=== PATIENT | male | born 1945 | race Caucasian/White ===

== ENCOUNTER 2024-12-05 08:38 | Day surgery (SDC) | payer MEDICARE, MEDICAID ==
[~2024-12-05] VITALS: Ht 188 cm; Wt 89.5 kg
[2024-12-05] MEDS ORDERED: albumin 25% 100mL bottle x 1 IV PRN (09:10)
[2024-12-05] MEDS ORDERED: normal saline 1000ml 1,000 ML IV PRN (09:20)
[2024-12-05] MEDS ORDERED: LOSA100T58 PO (09:35)
[2024-12-05] MEDS ORDERED: OMEP20CA16 PO (09:35)
[2024-12-05] MEDS ORDERED: APIX2.5T PO (09:35)
[2024-12-05] MEDS ORDERED: BUSP15TA3 PO (09:35)
[2024-12-05] MEDS ORDERED: ATOR20TA66 PO (09:35)
[2024-12-05] MEDS ORDERED: LEVO50TA8 PO (09:35)
[2024-12-05] MEDS ORDERED: CYAN-104 PO (09:35)
[2024-12-05] MEDS ORDERED: SPIR50TA5 PO (09:35)
[2024-12-05] MEDS ORDERED: ATEN50TA2 PO (09:35)
[2024-12-05] MEDS ORDERED: FURO40TA4 PO (09:35)
[2024-12-05] MEDS ORDERED: FLUT1BLS3 PO (09:35)
[2024-12-05] MEDS ORDERED: BETA15CR15 TOP (09:35)
[2024-12-05] MEDS ORDERED: METF-1203 PO (09:35)
[2024-12-05 09:45] VITALS: BP 147/60; PULSE 57; RESP 16; TEMP 98.4; O2SAT 100
[2024-12-05] MEDS ORDERED: ACET325T54 PO (09:58)
[2024-12-05] MEDS ORDERED: ALBU8HFA INH (09:58)
[2024-12-05] MEDS ORDERED: CARB15DR EACHEYE (09:58)
[2024-12-05] MEDS ORDERED: SODI44SP2 BOTHNARES (09:58)
[2024-12-05] MEDS ORDERED: SILV50CR31 TOP (09:58)
[2024-12-05] MEDS ORDERED: ZINC57OI3 TOP (09:58)
[2024-12-05 10:12] LABS: INR 1.4 INR; PROTHROMBIN TIME 14.5 SECONDS (9.0-12.0)
--- NOTE | 2024-12-08 16:52 | RADIOLOGY REPORT ---
PROCEDURE: ULTRASOUND GUIDED PARACENTESIS HISTORY: 79 Male requiring paracentesis. TECHNIQUE: The risks and benefits of the procedure including but not limited to bleeding, infection and injury t o abdominal organs were explained to the patient and written informed consent was obtained. Optimal site for puncture was determined using ultrasound and the area sterilized and draped. Using a 5 [place] Yueh catheter, paracentesis was performed in the right lower abdomen. IMPRESSION: Ultrasound-guided paracentesis with no immediate complications.
== END 2024-12-05 12:00 ==
LOC: SSTAY O 08:38
PROVIDERS: ATTEND Family Medicine
DX: R18.8 Other ascites (principal); K74.60 Unspecified cirrhosis of liver; J44.9 Chronic obstructive pulmonary disease, unspecified; E11.9 Type 2 diabetes mellitus without complications
CPT/HCPCS: 36415; 76705; 85610; A6258; A6449

== ENCOUNTER 2024-12-05 19:38 | Inpatient (IN) | payer MEDICARE, MEDICAID ==
[~2024-12-05] VITALS: Ht 188 cm; Wt 90.0 kg
[~2024-12-05 19:38] MED LIST: ACET325T54 PO; ALBU8HFA INH; APIX2.5T PO; ATEN50TA2 PO; ATOR20TA66 PO; BETA15CR15 TOP; BUSP15TA3 PO; CARB15DR EACHEYE; CYAN-104 PO; FLUT1BLS3 PO; FURO40TA4 PO; LEVO50TA8 PO; LOSA100T58 PO; METF-1203 PO; OMEP20CA16 PO; SILV50CR31 TOP; SODI44SP2 BOTHNARES; SPIR50TA5 PO; ZINC57OI3 TOP
[2024-12-05] MEDS: ondansetron/PF 4mg/2ml inj IV ONE ×2 (20:14→21:25)
[2024-12-05 21:20] LABS: BASOPHILS % (AUTO) 0.5 % (0-1); EOSINOPHILS % (AUTO) 0.1 % (0-6); HEMATOCRIT 40.5 % (42.0-52.0); HEMOGLOBIN 12.9 g/dl (14.0-17.9); LYMPHOCYTES # (AUTO) 0.5 X10'3 (1.1-4.8); LYMPHOCYTES % (AUTO) 7.9 % (21-51); MEAN CORPUSCULAR HGB CONC 31.9 g/dL (33.0-36.5); MEAN CORPUSCULAR VOLUME 97.2 FL (78-98); MEAN PLATELET VOLUME 8.4 FL (7.4-10.4); MONOCYTES # (AUTO) 0.8 X10'3 (0-0.9); MONOCYTES % (AUTO) 12.3 % (2-12); NEUTROPHILS # (AUTO) 5.2 X10'3 (1.8-7.7); NEUTROPHILS % (AUTO) 79.2 % (42-75); PLATELET COUNT 169 X10'3 (140-440); RED BLOOD COUNT 4.17 X10'6 (4.70-6.10); RED CELL DISTRIBUTION WIDTH 17.6 % (11.5-14.5); WHITE BLOOD COUNT 6.5 X10'3 (4.5-11.0)
[2024-12-05] MEDS: fentaNYL/PF 50MCG/1 ML 2ML syringe IV ONE (21:26)
[2024-12-05 21:29] LABS: ALANINE AMINOTRANSFERASE 10 U/L (12-78); ALBUMIN 3.5 G/DL (3.4-5.0); ALKALINE PHOSPHATASE 104 IU/L (46-116); ANION GAP 9 (8-16); ASPARTATE AMINO TRANSFERASE 14 U/L (10-37); BILIRUBIN,TOTAL 1.7 MG/DL (0.1-1.0); BLOOD UREA NITROGEN 24 MG/DL (7-18); BUN/CREATININE RATIO 18.8 (10.0-20.0); CALCIUM 8.9 MG/DL (8.5-10.1); CHLORIDE 101 MMOL/L (99-107); CREATININE 1.28 MG/DL (0.60-1.10); GLUCOSE 121 MG/DL (70-104); POTASSIUM 4.2 MMOL/L (3.5-5.1); SODIUM 138 MMOL/L (135-145); TOTAL CARBON DIOXIDE 27.7 MMOL/L (24-32); eCRCL 54 ML/MIN; eGFR 54 ML/MIN
[2024-12-05 21:32] LABS: LIPASE 24 U/L (16-77)
[2024-12-05] MEDS: CefTRIAXone/D5W-Rocephin 1gm 50 ML IV ONE (23:30)
[2024-12-06] MEDS: azithromycin/NS 500mg/250ml 250 ML IV ONE (00:26)
[2024-12-06] MEDS ORDERED: magnesium Cl slow-release 64mg tablet PO PRN (01:00)
[2024-12-06] MEDS ORDERED: potassium Cl 40MEQ/1/2NS 520ml 520 ML IV PRN (01:00)
[2024-12-06] MEDS ORDERED: mag hydrox/Alum hydrox/simeth 30ml oral suspension PO PRN (01:00)
[2024-12-06] MEDS ORDERED: potassium Cl 20 mEq SR tablet PO PRN ×2 (01:00)
[2024-12-06] MEDS ORDERED: magnesium sulf-water 4G/100mL 100 ML IV PRN (01:00)
[2024-12-06] MEDS ORDERED: magnesium sulf-water 2g/50mL 50 ML IV PRN (01:00)
[2024-12-06] MEDS: normal saline 1000ml 1,000 ML IV SCH (01:47)
[2024-12-06] MEDS: LidoCAINE 2% Topical Jelly 11mL syringe (UROJET) TOP ONE (04:06)
[2024-12-06 04:33] LABS: INR 1.3 INR; MAGNESIUM 1.7 MG/DL (1.5-2.4); PROTHROMBIN TIME 13.3 SECONDS (9.0-12.0)
[2024-12-06 04:38] LABS: BILIRUBIN,URINE NEGATIVE (Neg); CLARITY,URINE CLEAR (Clear); COLOR,URINE YELLOW (Yellow); GLUCOSE, URINE NEGATIVE (Neg); KETONES,URINE NEGATIVE (Neg); LEUKOCYTE ESTERASE ,URINE NEGATIVE (Neg); NITRITES, URINE NEGATIVE (Neg); OCCULT BLOOD,URINE NEGATIVE (Neg); PH,URINE 5.5 (4.8-8.0); PROTEIN,URINE TRACE mg/dl (Neg); UROBILINOGEN,URINE 0.2 E.U/dL (0.2-1.0)
[2024-12-06 04:40] LABS: POTASSIUM 4.5 MMOL/L (3.5-5.1)
[2024-12-06 04:50] LABS: UA COLLECTION TYPE FOLEY CATH
[2024-12-06 04:53] LABS: BACTERIA,URINE 1+ /HPF (Neg); MUCUS STRANDS FEW /LPF (Neg); RBC,URINE NONE SEEN /HPF (0-2); SQUAMOUS EPITHELIAL CELL,UR FEW /LPF (FEW); WBC,URINE 0-4 /HPF (0-4)
[2024-12-06 05:25] LABS: UA EOSINOPHILS NO EOS /HPF
[2024-12-06] MEDS: K and/or MAG REPLACEMENT MC SCH (08:00)
[2024-12-06] MEDS: docusate sod 100mg capsule PO SCH (08:00)
[2024-12-06 08:44] LABS: BILIRUBIN,URINE SMALL (Neg); CLARITY,URINE CLOUDY (Clear); COLOR,URINE YELLOW (Yellow); GLUCOSE, URINE NEGATIVE (Neg); KETONES,URINE TRACE mg/dl (Neg); LEUKOCYTE ESTERASE ,URINE NEGATIVE (Neg); NITRITES, URINE NEGATIVE (Neg); OCCULT BLOOD,URINE LARGE (Neg); PH,URINE 5.5 (4.8-8.0); PROTEIN,URINE 100 mg/dl (Neg)
[2024-12-06 08:48] LABS: UA COLLECTION TYPE FOLEY CATH
[2024-12-06 08:49] LABS: BACTERIA,URINE FEW /HPF (Neg); MUCUS STRANDS FEW /LPF (Neg); RBC,URINE TNTC /HPF (0-2); SQUAMOUS EPITHELIAL CELL,UR FEW /LPF (FEW)
[2024-12-06 09:09] LABS: BASOPHILS % (AUTO) 0.4 % (0-1); EOSINOPHILS % (AUTO) 0.1 % (0-6); HEMATOCRIT 38.1 % (42.0-52.0); HEMOGLOBIN 12.3 g/dl (14.0-17.9); LYMPHOCYTES # (AUTO) 0.5 X10'3 (1.1-4.8); LYMPHOCYTES % (AUTO) 9.4 % (21-51); MEAN CORPUSCULAR HGB CONC 32.3 g/dL (33.0-36.5); MEAN CORPUSCULAR VOLUME 96.1 FL (78-98); MEAN PLATELET VOLUME 8.4 FL (7.4-10.4); MONOCYTES # (AUTO) 0.9 X10'3 (0-0.9); MONOCYTES % (AUTO) 14.9 % (2-12); NEUTROPHILS # (AUTO) 4.4 X10'3 (1.8-7.7); NEUTROPHILS % (AUTO) 75.2 % (42-75); PLATELET COUNT 171 X10'3 (140-440); RED BLOOD COUNT 3.96 X10'6 (4.70-6.10); RED CELL DISTRIBUTION WIDTH 17.6 % (11.5-14.5); WHITE BLOOD COUNT 5.8 X10'3 (4.5-11.0)
[2024-12-06 09:14] LABS: ALANINE AMINOTRANSFERASE 13 U/L (12-78); ALBUMIN 3.1 G/DL (3.4-5.0); ALBUMIN/GLOBULIN RATIO 0.9 (1.1-1.5); ALKALINE PHOSPHATASE 89 IU/L (46-116); ANION GAP 5 (8-16); ASPARTATE AMINO TRANSFERASE 12 U/L (10-37); BILIRUBIN,TOTAL 1.3 MG/DL (0.1-1.0); BLOOD UREA NITROGEN 23 MG/DL (7-18); BUN/CREATININE RATIO 19.2 (10.0-20.0); CALCIUM 8.6 MG/DL (8.5-10.1); CHLORIDE 104 MMOL/L (99-107); GLUCOSE 108 MG/DL (70-104); POTASSIUM 4.4 MMOL/L (3.5-5.1); SODIUM 139 MMOL/L (135-145); TOTAL CARBON DIOXIDE 30.3 MMOL/L (24-32); TOTAL PROTEIN 6.4 G/DL (6.4-8.2); eCRCL 57 ML/MIN; eGFR 58 ML/MIN
[2024-12-06] MEDS: CefTRIAXone/D5W-Rocephin 1gm 50 ML IV SCH (09:28)
[2024-12-06] MEDS: methylPREDNISolone sod succ 125mg/2ml vial IV SCH (09:30)
[2024-12-06] MEDS: aspirin 81mg, enteric-coated 1 TAB TABLET.DR PO SCH (09:32)
[2024-12-06] MEDS: heparin, porcine 5000 units/ml vial SQ SCH (09:36)
[2024-12-06] MEDS: azithromycin/NS 500mg/250ml 250 ML IV SCH (10:00)
[2024-12-06] MEDS: apixaban 5mg tablet PO SCH (10:01)
[2024-12-06 13:45] LABS: URINE AMPHETAMINE SCREEN NEGATIVE (Neg); URINE BARBITUATE SCREEN NEGATIVE (Neg); URINE BENZODIAZEPINES SCREEN NEGATIVE (Neg); URINE CANNABINOID SCREEN NEGATIVE (Neg); URINE COCAINE SCREEN NEGATIVE (Neg); URINE METHADONE SCREEN NEGATIVE (Neg); URINE OPIATE SCREEN NEGATIVE (Neg); URINE PHENCYCLIDINE SCREEN NEGATIVE (Neg)
[2024-12-06] MEDS ORDERED: albuterol 2.5 MG/3 ML nebule NEB PRN (16:25)
[2024-12-06 16:31] VITALS: BP 164/76; PULSE 71; RESP 16; TEMP 98.2; O2SAT 98
[2024-12-06 18:00] VITALS: BP 164/78; PULSE 71; RESP 15; TEMP 98.2; O2SAT 98
[2024-12-06 20:14] VITALS: PULSE 64; RESP 16; O2SAT 96
[2024-12-06] MEDS: ipratropium/albuterol 3ml nebule NEB SCH (20:15)
[2024-12-06] MEDS: methylPREDNISolone sod succ/PF 40mg inj. IV SCH (20:31)
[2024-12-06] MEDS: busPIRone 15mg tablet PO SCH (20:31)
[2024-12-06] MEDS: ondansetron/PF 4mg/2ml inj IV PRN (20:34)
[2024-12-06 22:00] VITALS: BP 118/58; PULSE 74; RESP 16; TEMP 97.9; O2SAT 99
[2024-12-06 23:49] VITALS: PULSE 78; RESP 18; O2SAT 96
[2024-12-07] VITALS (10 sets, daily range): BP systolic 124–149; BP diastolic 62–81; PULSE 18–91; RESP 14–18; TEMP 97.5–97.9; O2SAT 89–97
[2024-12-07] MEDS: traMADol 50MG tablet PO PRN
[2024-12-07 06:23] LABS: BASOPHILS % (AUTO) 0.3 % (0-1); EOSINOPHILS % (AUTO) 0 % (0-6); HEMATOCRIT 39.7 % (42.0-52.0); HEMOGLOBIN 12.9 g/dl (14.0-17.9); LYMPHOCYTES # (AUTO) 0.3 X10'3 (1.1-4.8); LYMPHOCYTES % (AUTO) 6.6 % (21-51); MEAN CORPUSCULAR HEMOGLOBIN 31.3 PG (27.0-31.0); MEAN CORPUSCULAR HGB CONC 32.4 g/dL (33.0-36.5); MEAN CORPUSCULAR VOLUME 96.6 FL (78-98); MEAN PLATELET VOLUME 8.3 FL (7.4-10.4); MONOCYTES # (AUTO) 0.2 X10'3 (0-0.9); MONOCYTES % (AUTO) 3.7 % (2-12); NEUTROPHILS # (AUTO) 4.3 X10'3 (1.8-7.7); NEUTROPHILS % (AUTO) 89.4 % (42-75); PLATELET COUNT 182 X10'3 (140-440); RED BLOOD COUNT 4.11 X10'6 (4.70-6.10); RED CELL DISTRIBUTION WIDTH 17.1 % (11.5-14.5); WHITE BLOOD COUNT 4.8 X10'3 (4.5-11.0)
[2024-12-07 06:58] LABS: ALANINE AMINOTRANSFERASE 6 U/L (12-78); ALBUMIN 3.1 G/DL (3.4-5.0); ALBUMIN/GLOBULIN RATIO 0.9 (1.1-1.5); ALKALINE PHOSPHATASE 91 IU/L (46-116); ANION GAP 11 (8-16); ASPARTATE AMINO TRANSFERASE 18 U/L (10-37); BILIRUBIN,TOTAL 1.1 MG/DL (0.1-1.0); BLOOD UREA NITROGEN 26 MG/DL (7-18); BUN/CREATININE RATIO 24.8 (10.0-20.0); CALCIUM 8.7 MG/DL (8.5-10.1); CHLORIDE 102 MMOL/L (99-107); CHOLESTEROL 99 MG/DL (0-200); CREATININE 1.05 MG/DL (0.60-1.10); GLUCOSE 113 MG/DL (70-104); HDL CHOLESTEROL 33 MG/DL (35-60); LDL CHOLESTEROL 58 MG/DL (50-100); MAGNESIUM 1.8 MG/DL (1.5-2.4); POTASSIUM 4.5 MMOL/L (3.5-5.1); SODIUM 136 MMOL/L (135-145); THYROID STIMULATING HORMONE 3.34 ulU/ml (0.34-4.50); TOTAL CARBON DIOXIDE 23.1 MMOL/L (24-32); TOTAL PROTEIN 6.6 G/DL (6.4-8.2); TRIGLYCERIDES 51 MG/DL (20-135); eCRCL 65 ML/MIN; eGFR 68 ML/MIN
[2024-12-07] MEDS: metoprolol succinate 25mg (24-HOUR) SR. Tablet PO SCH (08:00)
[2024-12-07] MEDS: atorvastatin 20mg tablet PO SCH (08:00)
[2024-12-07] MEDS ORDERED: ondansetron/PF 4mg/2ml inj IV PRN (08:35)
[2024-12-07] MEDS: CefTRIAXone 2gm/D5W 50ml BAG 50 ML IV SCH (09:17)
[2024-12-07] MEDS: doxycycline inj 100 MG in normal saline 100ml IV soln 100 ML IV SCH (09:17)
[2024-12-07] MEDS: metoclopramide 5 mg/ml inj IV PRN (09:21)
[2024-12-07] MEDS: morphine 2 MG/ML inj. syringe IV PRN (09:53)
[2024-12-07] MEDS ORDERED: NUT.TX.IMPAIRED DIGEST FXN (Ensure Clear) 237 ML PO SCH (13:00)
[2024-12-07] MEDS: nystatin 15 GM ointment TP SCH (14:21)
[2024-12-07] MEDS: lactose-reduced food (Ensure Enlive) - 237ml bottle PO SCH (18:00)
[2024-12-08] VITALS (17 sets, daily range): BP systolic 104–144; BP diastolic 54–69; PULSE 84–129; RESP 16–28; TEMP 98–98.5; O2SAT 89–98
[2024-12-08] MEDS: acetaminophen 325mg tablet PO PRN (00:32)
[2024-12-08 06:39] LABS: BASOPHILS % (AUTO) 0.2 % (0-1); EOSINOPHILS % (AUTO) 0 % (0-6); HEMATOCRIT 40.7 % (42.0-52.0); HEMOGLOBIN 13.2 g/dl (14.0-17.9); LYMPHOCYTES # (AUTO) 0.3 X10'3 (1.1-4.8); MEAN CORPUSCULAR HEMOGLOBIN 31.1 PG (27.0-31.0); MEAN CORPUSCULAR HGB CONC 32.4 g/dL (33.0-36.5); MEAN CORPUSCULAR VOLUME 96.1 FL (78-98); MEAN PLATELET VOLUME 8.1 FL (7.4-10.4); MONOCYTES # (AUTO) 1.3 X10'3 (0-0.9); MONOCYTES % (AUTO) 16.8 % (2-12); NEUTROPHILS # (AUTO) 6.1 X10'3 (1.8-7.7); PLATELET COUNT 208 X10'3 (140-440); RED BLOOD COUNT 4.24 X10'6 (4.70-6.10); RED CELL DISTRIBUTION WIDTH 16.4 % (11.5-14.5); WHITE BLOOD COUNT 7.7 X10'3 (4.5-11.0)
[2024-12-08 06:51] LABS: ALANINE AMINOTRANSFERASE 10 U/L (12-78); ALBUMIN/GLOBULIN RATIO 0.9 (1.1-1.5); ALKALINE PHOSPHATASE 87 IU/L (46-116); ANION GAP 8 (8-16); ASPARTATE AMINO TRANSFERASE 15 U/L (10-37); BILIRUBIN,TOTAL 0.8 MG/DL (0.1-1.0); BLOOD UREA NITROGEN 33 MG/DL (7-18); BUN/CREATININE RATIO 29.5 (10.0-20.0); CALCIUM 8.8 MG/DL (8.5-10.1); CHLORIDE 100 MMOL/L (99-107); CREATININE 1.12 MG/DL (0.60-1.10); GLUCOSE 133 MG/DL (70-104); MAGNESIUM 2.1 MG/DL (1.5-2.4); POTASSIUM 4.8 MMOL/L (3.5-5.1); SODIUM 135 MMOL/L (135-145); TOTAL CARBON DIOXIDE 27.4 MMOL/L (24-32); TOTAL PROTEIN 6.5 G/DL (6.4-8.2); eCRCL 61 ML/MIN; eGFR 63 ML/MIN
[2024-12-08] MEDS: normal saline 1000ml 1,000 ML IV SCH (13:35)
[2024-12-08] MEDS: furosemide 40mg/4ml inj IV ONE (16:39)
[2024-12-08] MEDS: magnesium hydroxide 30ml (MOM) UD suspension PO PRN (17:02)
[2024-12-08 18:12] LABS: D-DIMER 3.57 MG/L FEU (0-0.50)
[2024-12-09] VITALS (19 sets, daily range): BP systolic 123–137; BP diastolic 68–81; PULSE 98–124; RESP 16–24; TEMP 97.8–98.2; O2SAT 89–99
[2024-12-09] MEDS: furosemide 40mg/4ml inj IV ONE (01:53)
[2024-12-09 06:03] LABS: BASOPHILS % (AUTO) 0.2 % (0-1); EOSINOPHILS % (AUTO) 0 % (0-6); HEMATOCRIT 41.2 % (42.0-52.0); HEMOGLOBIN 13.6 g/dl (14.0-17.9); LYMPHOCYTES # (AUTO) 0.2 X10'3 (1.1-4.8); LYMPHOCYTES % (AUTO) 2.7 % (21-51); MEAN CORPUSCULAR HEMOGLOBIN 31.5 PG (27.0-31.0); MEAN CORPUSCULAR VOLUME 95.4 FL (78-98); MEAN PLATELET VOLUME 8.1 FL (7.4-10.4); MONOCYTES % (AUTO) 12.9 % (2-12); NEUTROPHILS # (AUTO) 6.7 X10'3 (1.8-7.7); NEUTROPHILS % (AUTO) 84.2 % (42-75); PLATELET COUNT 200 X10'3 (140-440); RED BLOOD COUNT 4.32 X10'6 (4.70-6.10); RED CELL DISTRIBUTION WIDTH 16.5 % (11.5-14.5)
[2024-12-09 06:26] LABS: ALANINE AMINOTRANSFERASE 8 U/L (12-78); ALBUMIN 3.1 G/DL (3.4-5.0); ALBUMIN/GLOBULIN RATIO 0.9 (1.1-1.5); ALKALINE PHOSPHATASE 81 IU/L (46-116); ANION GAP 7 (8-16); ASPARTATE AMINO TRANSFERASE 17 U/L (10-37); BILIRUBIN,TOTAL 0.7 MG/DL (0.1-1.0); BLOOD UREA NITROGEN 33 MG/DL (7-18); CALCIUM 8.9 MG/DL (8.5-10.1); CHLORIDE 101 MMOL/L (99-107); CREATININE 0.97 MG/DL (0.60-1.10); GLUCOSE 144 MG/DL (70-104); MAGNESIUM 2.1 MG/DL (1.5-2.4); POTASSIUM 4.3 MMOL/L (3.5-5.1); SODIUM 137 MMOL/L (135-145); TOTAL CARBON DIOXIDE 29.4 MMOL/L (24-32); TOTAL PROTEIN 6.6 G/DL (6.4-8.2); eCRCL 71 ML/MIN; eGFR 74 ML/MIN
[2024-12-09 08:36] LABS: LACTATE DEHYDROGENASE 223 U/L (85-227)
[2024-12-09] MEDS ORDERED: iohexol 350MG/ML 100ml bottle IV ONE (10:33)
[2024-12-09 11:11] LABS: GLUCOSE,BODY FLUID 135 MG/DL; LDH,BODY FLUID 74 U/L; TOTAL PROTEIN,BODY FLUID 2.7 G/DL
[2024-12-09] MEDS: albumin (human) 25% 100 ML IV solution IV ONE (11:56)
[2024-12-09] MEDS: metoprolol succinate 25mg (24-HOUR) SR. Tablet PO ONE (13:13)
[2024-12-09 13:26] LABS: BF RBC COUNT 13150 /CU MM; BF WBC COUNT 106 /CU MM (0-1000); BFAPPEAR CLOUDY; BFCOLOR RED; BFSOURCE ASCITES FLD; BFVOLUME 45 ML
[2024-12-09 13:27] LABS: BF MESOTHELIAL CELLS MANY; LYMPHOCYTES,BODY FLUID 43 %; MONOCYTES,BODY FLUID 38 %; NEUTROPHILS,BODY FLUID 19 %
[2024-12-09 13:34] LABS: BFSOURCE ASCITES
[2024-12-09] MEDS: normal saline 1000ml 1,000 ML IV ONE (16:26)
[2024-12-10] VITALS (13 sets, daily range): BP systolic 114–158; BP diastolic 80–95; PULSE 46–105; RESP 16–28; TEMP 97.2–97.8; O2SAT 85–95
[2024-12-10 06:40] LABS: BASOPHILS % (AUTO) 0 % (0-1); EOSINOPHILS % (AUTO) 0 % (0-6); HEMATOCRIT 39.5 % (42.0-52.0); HEMOGLOBIN 13.1 g/dl (14.0-17.9); LYMPHOCYTES # (AUTO) 0.3 X10'3 (1.1-4.8); LYMPHOCYTES % (AUTO) 4.1 % (21-51); MEAN CORPUSCULAR HEMOGLOBIN 31.9 PG (27.0-31.0); MEAN CORPUSCULAR HGB CONC 33.1 g/dL (33.0-36.5); MEAN CORPUSCULAR VOLUME 96.3 FL (78-98); MEAN PLATELET VOLUME 7.8 FL (7.4-10.4); MONOCYTES # (AUTO) 0.8 X10'3 (0-0.9); MONOCYTES % (AUTO) 10.4 % (2-12); NEUTROPHILS # (AUTO) 6.7 X10'3 (1.8-7.7); NEUTROPHILS % (AUTO) 85.5 % (42-75); PLATELET COUNT 172 X10'3 (140-440); WHITE BLOOD COUNT 7.8 X10'3 (4.5-11.0)
[2024-12-10 07:16] LABS: ALANINE AMINOTRANSFERASE 14 U/L (12-78); ALBUMIN 3.2 G/DL (3.4-5.0); ALKALINE PHOSPHATASE 75 IU/L (46-116); ANION GAP 7 (8-16); ASPARTATE AMINO TRANSFERASE 27 U/L (10-37); BILIRUBIN,TOTAL 0.7 MG/DL (0.1-1.0); BLOOD UREA NITROGEN 32 MG/DL (7-18); BUN/CREATININE RATIO 34.8 (10.0-20.0); CALCIUM 9.2 MG/DL (8.5-10.1); CHLORIDE 102 MMOL/L (99-107); CREATININE 0.92 MG/DL (0.60-1.10); GLUCOSE 129 MG/DL (70-104); MAGNESIUM 2.3 MG/DL (1.5-2.4); SODIUM 137 MMOL/L (135-145); TOTAL CARBON DIOXIDE 27.8 MMOL/L (24-32); TOTAL PROTEIN 6.5 G/DL (6.4-8.2); eCRCL 74 ML/MIN; eGFR 79 ML/MIN
[2024-12-10] MEDS: metoprolol succinate 25mg (24-HOUR) SR. Tablet PO SCH (11:24)
[2024-12-10] MEDS: LORazepam 2 mg/ml vial IV ONE (22:45)
[2024-12-11] VITALS (9 sets, daily range): BP systolic 132–149; BP diastolic 69–92; PULSE 87–106; RESP 2–20; TEMP 97.3–97.5; O2SAT 88–96
[2024-12-11] MEDS: LORazepam 1 MG tablet PO ONE ×2 (03:41→06:00)
[2024-12-11 06:01] LABS: BASOPHILS % (AUTO) 0.1 % (0-1); EOSINOPHILS % (AUTO) 0.3 % (0-6); HEMATOCRIT 39.6 % (42.0-52.0); HEMOGLOBIN 13.1 g/dl (14.0-17.9); LYMPHOCYTES # (AUTO) 0.8 X10'3 (1.1-4.8); LYMPHOCYTES % (AUTO) 7.4 % (21-51); MEAN CORPUSCULAR HEMOGLOBIN 31.7 PG (27.0-31.0); MEAN CORPUSCULAR VOLUME 96.2 FL (78-98); MEAN PLATELET VOLUME 8.4 FL (7.4-10.4); MONOCYTES # (AUTO) 1.9 X10'3 (0-0.9); MONOCYTES % (AUTO) 17.5 % (2-12); NEUTROPHILS # (AUTO) 7.9 X10'3 (1.8-7.7); NEUTROPHILS % (AUTO) 74.7 % (42-75); PLATELET COUNT 198 X10'3 (140-440); RED BLOOD COUNT 4.12 X10'6 (4.70-6.10); RED CELL DISTRIBUTION WIDTH 16.6 % (11.5-14.5); WHITE BLOOD COUNT 10.6 X10'3 (4.5-11.0)
[2024-12-11 06:08] LABS: ALANINE AMINOTRANSFERASE 13 U/L (12-78); ALBUMIN 3.1 G/DL (3.4-5.0); ALKALINE PHOSPHATASE 71 IU/L (46-116); ANION GAP 1 (8-16); ASPARTATE AMINO TRANSFERASE 19 U/L (10-37); BILIRUBIN,TOTAL 0.7 MG/DL (0.1-1.0); BLOOD UREA NITROGEN 37 MG/DL (7-18); BUN/CREATININE RATIO 43.5 (10.0-20.0); CALCIUM 9.2 MG/DL (8.5-10.1); CHLORIDE 102 MMOL/L (99-107); CREATININE 0.85 MG/DL (0.60-1.10); GLUCOSE 103 MG/DL (70-104); POTASSIUM 4.9 MMOL/L (3.5-5.1); SODIUM 137 MMOL/L (135-145); TOTAL CARBON DIOXIDE 33.6 MMOL/L (24-32); TOTAL PROTEIN 6.2 G/DL (6.4-8.2); eCRCL 81 ML/MIN; eGFR 87 ML/MIN
[2024-12-11] MEDS: methylPREDNISolone sod succ/PF 40mg inj. IV SCH (08:50)
[2024-12-11 08:56] LABS: PLATELET ESTIMATE NORMAL; TOTAL CELLS COUNTED 100
[2024-12-11 08:57] LABS: ANISOCYTOSIS 1+
[2024-12-11 08:58] LABS: ACANTHOCYTES FEW; SCHISTOCYTES FEW
[2024-12-11] MEDS ORDERED: DOXYCYCLINE 100MG CAPSULE PO SCH (17:30)
== END 2024-12-11 17:13 | DRG 432 ==
LOC: ER 19:39 → ED HOLD 22:46 → EDBEDREQ 12-06 15:12 → ORTHO 4S 12-06 15:50
PROVIDERS: ADMIT Surgery; ATTEND Family Medicine
PROC: 0W9G3ZZ Drainage of Peritoneal Cavity, Percutaneous Approach (ICD-10-PCS; principal; 2024-12-09)
PROC: B32T1ZZ Computerized Tomography (CT Scan) of Left Pulmonary Artery using Low Osmolar Contrast (ICD-10-PCS; 2024-12-09)
PROC: B3201ZZ Computerized Tomography (CT Scan) of Thoracic Aorta using Low Osmolar Contrast (ICD-10-PCS; 2024-12-09)
PROC: B32S1ZZ Computerized Tomography (CT Scan) of Right Pulmonary Artery using Low Osmolar Contrast (ICD-10-PCS; 2024-12-09)
DX: K74.60 Unspecified cirrhosis of liver (principal); G93.41 Metabolic encephalopathy; J69.0 Pneumonitis due to inhalation of food and vomit; J96.01 Acute respiratory failure with hypoxia; N17.9 Acute kidney failure, unspecified; R18.8 Other ascites; Z20.822 Contact with and (suspected) exposure to COVID-19; R31.9 Hematuria, unspecified; J44.9 Chronic obstructive pulmonary disease, unspecified; Z66 Do not resuscitate; F32.A Depression, unspecified; E11.9 Type 2 diabetes mellitus without complications; Z79.01 Long term (current) use of anticoagulants; Z79.84 Long term (current) use of oral hypoglycemic drugs; Z79.899 Other long term (current) drug therapy
CPT/HCPCS: 36415; 49083; 70450; 71045; 71275; 74176; 76604; 76700; 76705; 80053; 80061; 80305; 81001; 82042; 82140; 82570; 82607; 82945; 82948; 83036; 83605; 83615; 83690; 83735; 83935; 83986; 84132; 84157; 84300; 84443; 84484; 85007; 85025; 85379; 85610; 87040; 87070; 87075; 87081; 87207; 87502; 87503; 87811; 89051; 92508; 92616; 93005; 93306; 93970; 94640; 94760; 96374; 96375; 96376; 97110; 97162; 97530; 99285; A4615; A6196; A6212; A6213; A6222; A6223; A6224; A6253; A6258; A6446; A6449; G0378; J0456; J0696; J1644; J1940; J2270; J2405; J2765; J2919; J3010; J3490; J7030; J7040; P9047; Q9967

== ENCOUNTER 2025-01-08 19:17 | Emergency (ER) | payer OTHER, MEDICARE, MEDICAID ==
[~2025-01-08] VITALS: Ht 185.4 cm; Wt 60.0 kg
[2025-01-08 20:21] VITALS: TEMP 98.6
[2025-01-08 21:12] LABS: BASOPHILS % (AUTO) 0.6 % (0-1); EOSINOPHILS % (AUTO) 0.7 % (0-6); HEMATOCRIT 38.4 % (42.0-52.0); LYMPHOCYTES # (AUTO) 1.1 X10'3 (1.1-4.8); LYMPHOCYTES % (AUTO) 18.2 % (21-51); MEAN CORPUSCULAR HEMOGLOBIN 30.9 PG (27.0-31.0); MEAN CORPUSCULAR VOLUME 90.9 FL (78-98); MEAN PLATELET VOLUME 7.7 FL (7.4-10.4); MONOCYTES % (AUTO) 16.9 % (2-12); NEUTROPHILS # (AUTO) 3.9 X10'3 (1.8-7.7); NEUTROPHILS % (AUTO) 63.6 % (42-75); PLATELET COUNT 296 X10'3 (140-440); RED BLOOD COUNT 4.22 X10'6 (4.70-6.10); RED CELL DISTRIBUTION WIDTH 14.7 % (11.5-14.5); WHITE BLOOD COUNT 6.1 X10'3 (4.5-11.0)
[2025-01-08 21:18] LABS: ALBUMIN 3.3 G/DL (3.4-5.0); ANION GAP 3 (8-16); BLOOD UREA NITROGEN 43 MG/DL (7-18); BUN/CREATININE RATIO 41.7 (10.0-20.0); CALCIUM 8.8 MG/DL (8.5-10.1); CHLORIDE 84 MMOL/L (99-107); CREATININE 1.03 MG/DL (0.60-1.10); GLUCOSE 89 MG/DL (70-104); POTASSIUM 5.4 MMOL/L (3.5-5.1); TOTAL CARBON DIOXIDE 29.7 MMOL/L (24-32); eCRCL 49 ML/MIN; eGFR 69 ML/MIN
[2025-01-08 21:34] LABS: TOTAL CELLS COUNTED 100
[2025-01-08 21:37] LABS: SODIUM 117 MMOL/L (135-145)
[2025-01-08] MEDS: ringers solution, lacted 1,000 ML IV ONE (22:30)
[2025-01-09 00:24] VITALS: BP 137/56; PULSE 65; RESP 16; O2SAT 99
== END 2025-01-09 00:26 ==
LOC: ER 19:18
DX: E87.1 Hypo-osmolality and hyponatremia (principal)
CPT/HCPCS: 80048; 85007; 85025; 93005; 96360; 99284; J7120